=== PATIENT | male | born 1995 | race Caucasian/White ===

== ENCOUNTER → 2020-03-16 | Outpatient (CLI) | payer BC ==
--- NOTE | 2020-03-16 17:17 | DIREP ---
PROCEDURE:XR SPINE CERVICAL 2 OR 3 VIEWS COMPARISON:None. INDICATIONS:NECK PAIN FINDINGS: ALIGNMENT:The dens and lateral masses appear appropriately aligned on the dedicated odontoid view. The dens appears intact. Normal cervical lordosis. Vertebral body alignment is maintained. Facet joints appear intact. VERTEBRAE:No compression deformity or acute fracture identified. DISK SPACES:Disc spaces appear relatively preserved. CERVICAL RIBS:None. OTHER:No prevertebral soft tissue thickening. CONCLUSION: 1. No acute osseous abnormality or vertebral body malalignment. 2. Preserved disc spaces. Dictated by: Ernesto aMrtínez M.D. On 03/16/2020 at 05:14 PM
--- NOTE | 2020-03-16 17:19 | DIREP ---
PROCEDURE:XRAY SPINE THORACIC 3 VWS COMPARISON:None. INDICATIONS:BACK PAIN FINDINGS: ALIGNMENT:Mild dextro convex curvature. Normal thoracic kyphosis. Vertebral body alignment is maintained. VERTEBRAE:No compression deformity or acute fracture identified. DISK SPACES:Disc spaces appear relatively preserved. OTHER:Surgical clips within the right upper quadrant suggest previous cholecystectomy. CONCLUSION: 1. No acute osseous abnormality or vertebral body malalignment. 2. Mild dextro convex curvature. Preserved disc spaces. Dictated by: Ernesto Martínez M.D. On 03/16/2020 at 05:15 PM
== END | disposition home or self-care (01) ==
LOC: RAD 16:40
PROVIDERS: ATTEND Chiropractor
DX: M43.8X4 Other specified deforming dorsopathies, thoracic region (principal); M54.2 Cervicalgia; M54.9 Dorsalgia, unspecified
CPT/HCPCS: 72040; 72072

== ENCOUNTER 2020-03-30 11:32 | Emergency (ER) | payer OTHER, BC ==
[~2020-03-30] VITALS: Ht 177.8 cm; Wt 72.6 kg
[2020-03-30 12:11] VITALS: BP 113/86
--- NOTE | 2020-03-30 12:15 | NUR ---
ARRIVAL PATIENT ARRIVED TO [facility] AMBULATORY, C/O OF RIGHT EYE INJURY AT WORK, STATES HE WAS USING A PICK WHEN IT SLIPPED HITTING HIM IN THE RIGHT EYE, ABRASION NOTED TO EYE, DENIES ANY VISION LOSS, CAME TO THE ED FOR EVAL.
--- NOTE | 2020-03-30 12:24 | ER.PDOC ---
General Chief Complaint: Eye Problems Stated Complaint: RIGHT EYE INJURY Time seen by MD: 12:22 Source: patient Exam Limitations: no limitations History of Present Illness Initial Comments STRUCK IN R EYE WITH A PEICE OF WIRE Timing/Duration: abrupt Associated Symptoms: pian Location: right eye Severity: mild Apparent Inury: Yes Context: direct trauma Where: work Allergies: Coded Allergies: No Known Allergies (Unverified , 03/30/20) Past Medical History Medical History: cardiac problems Surgical History: cholecystectomy, shoulder, other Social History Alcohol Use: occassionally Drug Use: none Reviewed Nursing Reviewed: Vital Signs, Abn. Noted All Other Systems: Reviewed and Negative Physical Exam General Appearance: alert, no distress Visual Acuity: no globe trauma Eyelid: nml inspection Conjunctiva/Sclera: subcjunctival hemorrhage Corneas: nml inspection EOM's: intact, no nystagmus Pupils: PERRL, nml accommodation Head/ENT: nml inspection, pharynx nml Skin Exam: Normal Color, Warm/Dry Neck/Back: nml inspection, painless ROM Resp/CVS: no resp distress, lungs clear, heart sounds nml, reg. rate & rhythm Abdomen: non-tender, no organomegaly NEURO/PSYCH: oriented X3, mood/effect nml Results/Orders Results/Orders Vital Signs Date Time Temp Pulse Resp B/P (MAP) Pulse Ox O2 Delivery O2 Flow Rate FiO2 03/30/20 12:11 98.8 78 16 113/86 (95) 99 Room Air 03/30/20 12:11 98.8 78 16 99 03/30/20 12:11 98.8 78 16 Progress Progress TETANUS UTD Departure Time of Disposition: 13:00 Disposition: 01 HOME, SELF-CARE Impression: Primary Impression: Subconjunctival bleed Condition: Stable Referrals: KALA MCMILLAN (PCP) PRIMARY CARE PROVIDER Duration or Time Spent with Pa: 12 M NITHYA FIELDS MD Mar 30, 2020 12:24
== END 2020-03-30 12:41 | disposition home or self-care (01) ==
LOC: ER 11:32
DX: H11.31 Conjunctival hemorrhage, right eye (principal); Z90.49 Acquired absence of other specified parts of digestive tract; W50.0XXA Accidental hit or strike by another person, initial encounter; Y93.89 Activity, other specified; Y92.89 Other specified places as the place of occurrence of the external cause; Y99.0 Civilian activity done for income or pay
CPT/HCPCS: 99283